=== PATIENT | female | born 1985 | race Two or more races ===

== ENCOUNTER 2017-10-17 19:41 | Emergency (ER) | payer OTHER ==
[2017-10-17 20:59] LABS: ABS Basophils 0 10^3/ul (0-0.2); ABS Eosinophils 0.1 10^3/ul (0-0.6); ABS Lymphocytes 2.6 10^3/ul (1.0-4.8); ABS Monocytes 0.5 10^3/ul (0-0.8); ABS Neutrophils 5.9 10^3/ul (1.5-7.7); ABS Nucleated RBC 0 10^3/ul; Hematocrit 39 % (35-47); Hemoglobin 13.5 g/dl (12.0-16.0); Lymphocyte % 28.6 % (25-47); Mean Corpuscular HGB Conc 34 g/dl (31-36); Mean Corpuscular Hemoglobin 29 pg (27-31); Mean Corpuscular Volume 83 fL (80-97); Mean Platelet Volume 8.8 um3 (7.4-10.4); Nucleated Red Blood Cells % 0.1; Platelet Count 225 10^3/ul (150-450); Red Blood Count 4.69 10^6/ul (4.00-5.40); Red Cell Distribution Width 14 % (10.5-15); White Blood Count 9.2 10^3/ul (3.5-10.8)
[2017-10-17 21:15] LABS: EGFR Non-African American 95.4 (>60)
[2017-10-17] MEDS ORDERED: Morphine VIAL* 10 MG/ML 1 ML VIAL IV ONE (22:45)
[2017-10-17] MEDS ORDERED: NS 0.9% 1000 ML* 1,000 ML IV ONE (22:45)
[2017-10-17] MEDS ORDERED: Ondansetron ODT TAB* 4 MG PO ONE (22:45)
[2017-10-17] MEDS ORDERED: Morphine VIAL* 4 MG/ML VIAL (1 ml vial) IV ONE ×2 (22:58→23:03)
--- NOTE | 2017-10-17 23:49 | ED ---
Abdominal Pain/Female - HPI Summary HPI Summary: Patient complains of right lower quadrant pain starting at 4 PM today. Abdominal pain described as constant, pulling, new onset, occurred while driving. Denies fever, N/V/D, urinary symptoms, change in BM, vaginal symptoms , cough, sore throat, CP, SOB. Medical history is none. Abdominal/pelvic surgical history is none. Nonsmoker, EtOH occasional, denies recreational drugs. - History of Current Complaint Chief Complaint: EDAbdPain Stated Complaint: RT SIDE PAIN Time Seen by Provider: 10/17/17 22:33 Hx Obtained From: Patient, Family/Social Media Developer Hx Last Menstrual Period: 07/04/15 Onset/Duration: Sudden Onset Timing: Constant Severity Initially: Moderate Severity Currently: Moderate Pain Intensity: 8 Pain Scale Used: 0-10 Numeric Location: Discrete At: RLQ Radiates: No Character: Tearing Alleviating Factor(s): Position Associated Signs and Symptoms: Positive: Negative Allergies/Adverse Reactions: Allergies Allergy/AdvReac Type Severity Reaction Status Date / Time No Known Allergies Allergy Verified 10/17/17 19:55 PMH/Surg Hx/FS Hx/Imm Hx Endocrine/Hematology History: Denies: Hx Diabetes Cardiovascular History: Denies: Hx Hypertension GI History: Comment Only: Other GI Disorders - HX OF BACTERIAL INFECTION IN STOMACH History: Denies: Hx Dialysis, Hx Renal Disease EENT History: Denies: Hx Deafness Neurological History: Denies: Hx CVA - Surgical History Surgery Procedure, Year, and Place: TUBAL LIGATION OCTOBER 2014. ABDOMINAL PLASTY OCTOBER 2014. BREAST IMPLANTS OCTOBER 2014 Infectious Disease History: No Infectious Disease History: Denies: History Other Infectious Disease, Traveled Outside the [place] in Last 30 Days - Family History Known Family History: Positive: Unknown Negative: Cardiac Disease, Hypertension, Diabetes - Social History Alcohol Use: Rare Substance Use Type: Reports: None Smoking Status (MU): Never Smoked Tobacco Have You Smoked in the Last Year: No Review of Systems Constitutional: Negative Eyes: Negative ENT: Negative Cardiovascular: Negative Respiratory: Negative Positive: Abdominal Pain Genitourinary: Negative Musculoskeletal: Negative Skin: Negative Neurological: Negative Psychological: Normal All Other Systems Reviewed And Are Negative: Yes Physical Exam - Summary Physical Exam Summary: Tenderness to palpation right lower quadrant. Exam of other quadrants unremarkable Triage Information Reviewed: Yes Vital Signs On Initial Exam: Initial Vitals Temp Pulse Resp BP Pulse Ox 97.2 F 79 18 128/70 100 10/17/17 19:53 10/17/17 19:53 10/17/17 19:53 10/17/17 19:53 10/17/17 19:53 Vital Signs Reviewed: Yes Appearance: Positive: Well-Appearing Skin: Positive: Warm Head/Face: Positive: Normal Head/Face Inspection Eyes: Positive: Normal Neck: Positive: Supple Respiratory/Lung Sounds: Positive: Clear to Auscultation Cardiovascular: Positive: Normal Musculoskeletal: Positive: Normal Neurological: Positive: Normal Psychiatric: Positive: Normal AVPU Assessment: Alert - Aida Coma Scale Best Eye Response: 4 - Spontaneous Best Motor Response: 6 - Obeys Commands Best Verbal Response: 5 - Oriented Coma Scale Total: 15 Diagnostics - Vital Signs Vital Signs Temp Pulse Resp BP Pulse Ox 10/17/17 23:04 20 10/17/17 23:00 67 100 10/17/17 22:47 60 100 10/17/17 22:46 62 126/83 100 10/17/17 21:54 98.4 F 63 18 134/77 100 10/17/17 19:53 97.2 F 79 18 128/70 100 - Laboratory Lab Results: Lab Results 10/17/17 10/17/17 10/17/17 Range/Units 20:44 20:44 20:44 WBC 9.2 (3.5-10.8) 10^3/ul RBC 4.69 (4.00-5.40) 10^6/ul Hgb 13.5 (12.0-16.0) g/dl Hct 39 (35-47) % MCV 83 (80-97) fL MCH 29 (27-31) pg MCHC 34 (31-36) g/dl RDW 14 (10.5-15) % Plt Count 225 (150-450) 10^3/ul MPV 8.8 (7.4-10.4) um3 Neut % (Auto) 64.5 (38-83) % Lymph % (Auto) 28.6 (25-47) % Gregg % (Auto) 5.4 (0-7) % Eos % (Auto) 1.0 (0-6) % Baso % (Auto) 0.5 (0-2) % Absolute Neuts (auto) 5.9 (1.5-7.7) 10^3/ul Absolute Lymphs (auto) 2.6 (1.0-4.8) 10^3/ul Absolute Monos (auto) 0.5 (0-0.8) 10^3/ul Absolute Eos (auto) 0.1 (0-0.6) 10^3/ul Absolute Basos (auto) 0 (0-0.2) 10^3/ul Absolute Nucleated RBC 0 10^3/ul Nucleated RBC % 0.1 Sodium 140 (135-145) mmol/L Potassium 3.5 (3.5-5.0) mmol/L Chloride 103 (101-111) mmol/L Carbon Dioxide 31 (22-32) mmol/L Anion Gap 6 (2-11) mmol/L BUN 10 (6-24) mg/dL Creatinine 0.71 (0.51-0.95) mg/dL Est GFR ( Amer) 115.4 (>60) Est GFR (Non-Af Amer) 95.4 (>60) BUN/Creatinine Ratio 14.1 (8-20) Glucose 88 (70-100) mg/dL Lactic Acid 0.8 (0.5-2.0) mmol/L Calcium 9.6 (8.6-10.3) mg/dL Total Bilirubin 0.40 (0.2-1.0) mg/dL AST 16 (13-39) U/L ALT 16 (7-52) U/L Alkaline Phosphatase 73 (34-104) U/L C-Reactive Protein 2.21 (<8.01) mg/L Total Protein 7.4 (6.4-8.9) g/dL Albumin 4.5 (3.2-5.2) g/dL Globulin 2.9 (2-4) g/dL Albumin/Globulin Ratio 1.6 (1-3) Lipase 36 (11.0-82.0) U/L Beta HCG, Quant < 0.60 mIU/mL Result Diagrams: 10/17/17 20:44 10/17/17 20:44 Lab Statement: Any lab studies that have been ordered have been reviewed, and results considered in the medical decision making process. - CT ab/pel with CT Interpretation: No Acute Changes CT Interpretation Completed By: Radiologist - Ultrasound No standard instances Ultrasound Interpretation: No Acute Changes - NEG for torsion Ultrasound Interpretation Completed By: Radiologist Abdominal Pain Fem Course/Dx - Course Course Of Treatment: Patient complains of right lower quadrant pain starting at 4 PM today. Abdominal pain described as constant, pulling, new onset, occurred while driving. Denies fever, N/V/D, urinary symptoms, change in BM, vaginal symptoms, cough, sore throat, CP, SOB. Medical history is none. Abdominal/ pelvic surgical history is none. Nonsmoker, EtOH occasional, denies recreational drugs. Tenderness to palpation right lower quadrant. Exam of other quadrants unremarkable. Vital signs within normal limits and stable. Labs and imaging unremarkable. Ultrasound negative for torsion. CT abdomen/ pelvis negative for acute process. Home with tramadol. Follow-up with primary care - Diagnoses Provider Diagnoses: Right lower quadrant abdominal pain Discharge - Sign-Out/Discharge Documenting (check all that apply): Discharge/Admit/Transfer - Discharge Plan Condition: Stable Disposition: HOME Prescriptions: Tramadol HCl 50 mg PO TID 4 Days #8 tablet MDD 3 Patient Education Materials: Acute Abdominal Pain (ED) Forms: *Work Release Referrals: Cordell Núñez MD [Primary Care Provider] - Additional Instructions: Follow-up with primary care. Return to the ED for any new or worsening symptoms - Billing Disposition and Condition Condition: STABLE Disposition: Home
[2017-10-18] LABS: Urine Appearance Cloudy; Urine Blood Negative (Negative); Urine Color Yellow; Urine Ketones Negative (Negative); Urine Protein Negative (Negative); Urine Specific Gravity 1.011 (1.010-1.030); Urine Urobilinogen Negative (Negative)
[2017-10-18] MEDS ORDERED: Iohexol 300* (CONTRAST) 10 ML SDV IV ONE (00:59)
[2017-10-18 02:52] VITALS: BP 114/79
--- NOTE | 2017-10-18 07:39 | RAD ---
Indication: Evaluate for ovarian torsion. Real-time sonography of the pelvis was performed. Transabdominally the uterus measures 11.2 x 4.9 x 7.2 cm. Endometrial echo measures 10 mm. Right ovary measures 2.9 x 1.6 x 1.5 cm. Left ovary measures 2.5 x 2.6 x 3.4 cm. Doppler interrogation demonstrates flow in both ovaries. IMPRESSION: Unremarkable pelvic ultrasound.
--- NOTE | 2017-10-18 08:18 | RAD ---
CLINICAL HISTORY: Right lower quadrant pain COMPARISON: Most recent comparison CT of the abdomen and pelvis is dated December 02, 2015 TECHNIQUE: Contrast enhanced CT examination of the abdomen and pelvis from the lung bases through the initial tuberosities. The patient received 109 mL Omnipaque 300 intravenously prior to imaging.The patient received oral contrast as well prior to imaging. FINDINGS: VISUALIZED LUNG BASES: The visualized lung bases are grossly clear. There is no pleural effusion. ABDOMEN AND PELVIS: The liver, spleen, pancreas and adrenal glands are grossly normal in appearance. The gallbladder is normal. The kidneys are normal in appearance without focal mass, calcification or signs of hydronephrosis. The oral contrast has progressed as far as the hepatic flexure. The small and large bowel are not distended. The patient's normal appendix is identified in the right lower quadrant with gas partially filling the lumen measuring 5 mm in diameter. There is no gross retroperitoneal or mesenteric lymphadenopathy. The pelvic viscera is normal in appearance. The abdominal aorta and iliac arteries are normal in course and diameter. There are no sinister bone lesions. IMPRESSION: Normal CT examination.
--- NOTE | 2017-10-20 06:35 | PN ---
Progress Note - Progress Note Date of Service: 10/17/17 Note: Patient urine culture grew e. coli 25-50,000 This is moderate and will not treat at this time for low colony count
== END 2017-10-18 02:52 | disposition home or self-care (01) ==
LOC: ED 19:41
DX: R10.31 Right lower quadrant pain (principal)
CPT/HCPCS: 36415; 74177; 76856; 80053; 81003; 81015; 83605; 83690; 84702; 85025; 86140; 87077; 87086; 87186; 96374; 99283; A9270-GY; J2270; Q9967

== ENCOUNTER 2018-06-11 16:51 | Emergency (ER) | payer OTHER ==
[2018-06-11 17:41] LABS: Influenza A Molecular POSITIVE (Negative)
--- NOTE | 2018-06-11 18:08 | ED ---
Influenza-Like Illness - HPI Summary HPI Summary: Pt is a 33 y/o female who presents to the ED c/o fever. She has had symptoms for 3 days, which include fevers, body aches, sore throat, cough, rhinorrhea, mild SOB, and N/V. Pt denies any diarrhea. She rates the pain as a 10/10 in severity. She did not get this seasons flu vaccine. Pt has not taken any OTC medications. - History of Current Complaint Chief Complaint: EDFluSymptoms Hx Obtained From: Patient Onset/Duration: Gradual Onset, Lasting Days - 3, Still Present Severity: Severe - 10/10 Associated Signs & Symptoms: Fever, Cough, Sore Throat, Nasal Congestion, Vomiting - Allergy/Home Medications Allergies/Adverse Reactions: Allergies Allergy/AdvReac Type Severity Reaction Status Date / Time No Known Allergies Allergy Verified 06/11/18 17:16 PMH/Surg Hx/FS Hx/Imm Hx Endocrine/Hematology History: Denies: Hx Diabetes Cardiovascular History: Denies: Hx Hypertension GI History: Comment Only: Other GI Disorders - HX OF BACTERIAL INFECTION IN STOMACH History: Denies: Hx Dialysis, Hx Renal Disease Sensory History: Denies: Hx Deafness Neurological History: Denies: Hx CVA - Surgical History Surgery Procedure, Year, and Place: TUBAL LIGATION OCTOBER 2014. ABDOMINAL PLASTY OCTOBER 2014. BREAST IMPLANTS OCTOBER 2014 Infectious Disease History: No Infectious Disease History: Denies: History Other Infectious Disease, Traveled Outside the [place] in Last 30 Days - Family History Known Family History: Negative: Cardiac Disease, Hypertension, Diabetes - Social History Alcohol Use: Rare Hx Substance Use: No Substance Use Type: Reports: None Hx Tobacco Use: No Smoking Status (MU): Never Smoked Tobacco Have You Smoked in the Last Year: No Review of Systems Positive: Fever, Other - Body aches Positive: Sore Throat, Nasal Discharge Positive: Shortness Of Breath, Cough Positive: Vomiting, Nausea. Negative: Diarrhea All Other Systems Reviewed And Are Negative: Yes Physical Exam - Summary Physical Exam Summary: Appearance: Well appearing, no pain distress Skin: hot, dry, reflects adequate perfusion Head/face: normal Eyes: EOMI, BRYANNA ENT: mucous membranes moist, clear nasal mucus, pharynx clear Neck: supple, non-tender Respiratory: CTA, breath sounds present Cardiovascular: tachycardic but regular rhythm, pulses symmetrical Abdomen: non-tender, soft Bowel Sounds: present Musculoskeletal: normal, strength/ROM intact Neuro: normal, sensory motor intact, A&Ox3 Triage Information Reviewed: Yes Vital Signs On Initial Exam: Initial Vitals Temp Pulse Resp BP Pulse Ox 101.2 F 106 18 130/77 100 06/11/18 17:12 06/11/18 17:12 06/11/18 17:12 06/11/18 17:12 06/11/18 17:12 Vital Signs Reviewed: Yes Diagnostics - Vital Signs Vital Signs Temp Pulse Resp BP Pulse Ox 06/11/18 17:12 101.2 F 106 18 130/77 100 - Laboratory Lab Results: Lab Results 06/11/18 06/11/18 Range/Units 17:34 17:37 Influenza A (Rapid) Positive A (Negative) Group A Strep Rapid Negative (Negative) Lab Statement: Any lab studies that have been ordered have been reviewed, and results considered in the medical decision making process. Flu Symptom Course/Dx - Course Course Of Treatment: Nurse's notes reviewed. Patient with fever, body aches and flulike symptoms. She has tested positive for influenza A. She has had symptoms greater than 48 hours and is not a candidate for Tamiflu. Treat symptomatically. Tylenol, ibuprofen and dexamethasone here in the ER. Follow- up primary care physician. - Diagnoses Differential Diagnosis/HQI/PQRI: Positive: Bronchitis, Influenza, Upper Respiratory Infection Provider Diagnoses: Influenza A Discharge - Sign-Out/Discharge Documenting (check all that apply): Patient Departure - Discharge Patient Received Moderate/Deep Sedation with Procedure: No - Discharge Plan Condition: Improved Disposition: HOME Prescriptions: Lidocaine 2% VISCOUS* [Xylocaine 2% Viscous*] 15 ml SWISH SPIT Q4H PRN #1 btl PRN Reason: Sore Throat Naproxen [Naproxen 500 mg tab] 500 mg PO BID PRN #10 tablet.dr PRN Reason: fever/body aches Patient Education Materials: Influenza (ED) Print Language: AMHARIC Referrals: Cordell Núñez MD [Primary Care Provider] - Additional Instructions: beber mucho lquido. La vitamina C puede ayudar. Llame a bautista mdico a primera hora de la maana para programar un seguimiento inmediato. Regrese con dificultad para respirar, dolor en el pecho, incapacidad para retener lquidos, peor u otras preocupaciones. La influenza es contagiosa: lvese las diann y no comparta bebidas con otros. - Billing Disposition and Condition Condition: IMPROVED Disposition: Home - Attestation Statements Document Initiated by Scribe: Yes Documenting Scribe: Angelina Goodman Provider For Whom Scribe is Documenting (Include Credential): Jaret Oliver MD Scribe Attestation: Angelina Nichols, scribed for Jarte Oliver MD on 06/11/18 at 1833. Scribe Documentation Reviewed: Yes Provider Attestation: The documentation as recorded by the Angelina raphael accurately reflects the service I personally performed and the decisions made by Jaret white MD Status of Scribe Document: Viewed
[2018-06-11] MEDS ORDERED: Ibuprofen PED LIQ 100 MG/5 ML UDC PO ONE (18:10)
[2018-06-11] MEDS ORDERED: Acetaminophen ADULT LIQ* 650 MG/20.3 ML UDC PO ONE (18:11)
[2018-06-11] MEDS ORDERED: Dexamethasone Oral Solution* 1 MG/ML 10 ML UDC (10 MG) PO ONE (18:11)
[2018-06-11 18:34] VITALS: BP 129/79
== END 2018-06-11 18:36 | disposition home or self-care (01) ==
LOC: ED 16:51
DX: J10.1 Influenza due to other identified influenza virus with other respiratory manifestations (principal)
CPT/HCPCS: 87651; 99282; A9270-GY

== ENCOUNTER 2018-08-15 18:20 | Emergency (ER) | payer OTHER ==
[2018-08-15 22:39] LABS: ALT 12 U/L (7-52); AST 14 U/L (13-39); Albumin 4.2 g/dL (3.2-5.2); Albumin/Globulin Ratio 1.8 (1-3); Alkaline Phosphatase 78 U/L (34-104); Anion Gap 6 mmol/L (2-11); BUN/Creatinine Ratio 18.2 (8-20); Blood Urea Nitrogen 12 mg/dL (6-24); C Reactive Protein < 1.00 mg/L (<8.01); CO2 Carbon Dioxide 30 mmol/L (22-32); Chloride 105 mmol/L (101-111); EGFR African American 124.8 (>60); EGFR Non-African American 103.1 (>60); Globulin 2.3 g/dL (2-4); Glucose 90 mg/dL (70-100); Potassium 3.5 mmol/L (3.5-5.0); Sodium 141 mmol/L (135-145); Total Protein 6.5 g/dL (6.4-8.9)
[2018-08-15 22:41] LABS: ABS Basophils 0 10^3/ul (0-0.2); ABS Eosinophils 0.1 10^3/ul (0-0.6); ABS Lymphocytes 2.4 10^3/ul (1.0-4.8); ABS Monocytes 0.5 10^3/ul (0-0.8); ABS Neutrophils 4.5 10^3/ul (1.5-7.7); ABS Nucleated RBC 0 10^3/ul; Eosinophil % 1.6 %; Hematocrit 38 % (33-41); Hemoglobin 12.7 g/dL (12.0-16.0); Lymphocyte % 32.1 %; Mean Corpuscular HGB Conc 34 g/dL (31-36); Mean Corpuscular Hemoglobin 29 pg (27-31); Mean Corpuscular Volume 84 fL (80-97); Mean Platelet Volume 9.5 fL (7.4-10.4); Nucleated Red Blood Cells % 0.1; Platelet Count 195 10^3/uL (150-450); Red Blood Count 4.46 10^6 /uL (3.70-4.87); Red Cell Distribution Width 15 % (10.5-15); White Blood Count 7.6 10^3/uL (3.5-10.8)
[2018-08-15 22:42] LABS: Urine Appearance Cloudy; Urine Bilirubin Negative (Negative); Urine Blood Negative (Negative); Urine Color Yellow; Urine Glucose Negative (Negative); Urine Ketones Negative (Negative); Urine Nitrite Negative (Negative); Urine Protein Negative (Negative); Urine Specific Gravity 1.015 (1.010-1.030); Urine Urobilinogen Negative (Negative)
[2018-08-15 22:46] LABS: HCG Pregnancy < 0.60 mIU/mL
--- NOTE | 2018-08-15 23:20 | ED ---
Abdominal Pain/Female - HPI Summary HPI Summary: Patient complains of umbilical pain 3 days. States history of same intermittently times years. Last episode was 3 months ago. Patient is concerned she may have a hernia. Pain worse with movement, better with nothing. Denies trauma, fever, cough, sore throat, CP, SOB, N/V/D, age in urine , change in BM, vaginal symptoms. Medical history is none. Abdominal surgical history is none. - History of Current Complaint Chief Complaint: EDAbdPain Stated Complaint: ABD PAIN PER PT Time Seen by Provider: 08/15/18 21:51 Hx Obtained From: Patient Hx Last Menstrual Period: 07/04/15 ?: No Onset/Duration: Gradual Onset, Lasting Days Timing: Intermittent Episode Lasting Severity Initially: Severe Severity Currently: Severe Pain Intensity: 8 Pain Scale Used: 0-10 Numeric Location: Umbilical Radiates: No Character: Dull Aggravating Factor(s): Movement Alleviating Factor(s): Position Associated Signs and Symptoms: Positive: Negative Allergies/Adverse Reactions: Allergies Allergy/AdvReac Type Severity Reaction Status Date / Time No Known Allergies Allergy Verified 06/11/18 17:16 Home Medications: Home Medications NK [No Home Medications Reported] 08/15/18 [History Confirmed 08/15/18] PMH/Surg Hx/FS Hx/Imm Hx Endocrine/Hematology History: Denies: Hx Diabetes Cardiovascular History: Denies: Hx Hypertension GI History: Comment Only: Other GI Disorders - HX OF BACTERIAL INFECTION IN STOMACH History: Denies: Hx Dialysis, Hx Renal Disease Sensory History: Denies: Hx Deafness Opthamlomology History: Denies: Hx Eye Prosthesis EENT History: Denies: Hx Deafness Neurological History: Denies: Hx CVA Psychiatric History: Denies: Hx Autism - Surgical History Surgery Procedure, Year, and Place: TUBAL LIGATION OCTOBER 2014. ABDOMINAL PLASTY OCTOBER 2014. BREAST IMPLANTS OCTOBER 2014 Infectious Disease History: No Infectious Disease History: Denies: History Other Infectious Disease, Traveled Outside the [place] in Last 30 Days - Family History Known Family History: Negative: Cardiac Disease, Hypertension, Diabetes - Social History Alcohol Use: Rare Hx Substance Use: No Substance Use Type: Reports: None Hx Tobacco Use: No Smoking Status (MU): Never Smoked Tobacco Have You Smoked in the Last Year: No Review of Systems Constitutional: Negative Eyes: Negative ENT: Negative Cardiovascular: Negative Respiratory: Negative Positive: Abdominal Pain Genitourinary: Negative Musculoskeletal: Negative Skin: Negative Neurological: Negative Psychological: Normal All Other Systems Reviewed And Are Negative: Yes Physical Exam - Summary Physical Exam Summary: Mild tenderness around the umbilicus. Abdominal exam normal in all other quadrants. No hernia, mass, erythema, skin change noted to abdomen. Lung sounds clear to auscultation bilaterally. RRR. Triage Information Reviewed: Yes Vital Signs On Initial Exam: Initial Vitals Temp Pulse Resp BP Pulse Ox 97 F 72 18 138/61 100 08/15/18 18:35 08/15/18 18:35 08/15/18 18:35 08/15/18 18:35 08/15/18 18:35 Vital Signs Reviewed: Yes Appearance: Positive: Well-Appearing Skin: Positive: Warm Head/Face: Positive: Normal Head/Face Inspection Eyes: Positive: Normal Neck: Positive: Supple Respiratory/Lung Sounds: Positive: Clear to Auscultation Cardiovascular: Positive: Normal Abdomen Description: Positive: Other: Musculoskeletal: Positive: Normal Neurological: Positive: Normal Psychiatric: Positive: Normal AVPU Assessment: Alert - Aida Coma Scale Best Eye Response: 4 - Spontaneous Best Motor Response: 6 - Obeys Commands Best Verbal Response: 5 - Oriented Coma Scale Total: 15 Diagnostics - Vital Signs Vital Signs Temp Pulse Resp BP Pulse Ox 08/15/18 20:46 97.8 F 68 16 120/66 100 08/15/18 18:35 97 F 72 18 138/61 100 - Laboratory Lab Results: Lab Results 08/15/18 08/15/18 08/15/18 Range/Units 22:12 22:12 22:30 WBC 7.6 (3.5-10.8) 10^3/uL RBC 4.46 (3.70-4.87) 10^6 /uL Hgb 12.7 (12.0-16.0) g/dL Hct 38 (33-41) % MCV 84 (80-97) fL MCH 29 (27-31) pg MCHC 34 (31-36) g/dL RDW 15 (10.5-15) % Plt Count 195 (150-450) 10^3/uL MPV 9.5 (7.4-10.4) fL Neut % (Auto) 59.2 % Lymph % (Auto) 32.1 % [place] % (Auto) 6.7 % Eos % (Auto) 1.6 % Baso % (Auto) 0.4 % Absolute Neuts (auto) 4.5 (1.5-7.7) 10^3/ul Absolute Lymphs (auto) 2.4 (1.0-4.8) 10^3/ul Absolute Monos (auto) 0.5 (0-0.8) 10^3/ul Absolute Eos (auto) 0.1 (0-0.6) 10^3/ul Absolute Basos (auto) 0 (0-0.2) 10^3/ul Absolute Nucleated RBC 0 10^3/ul Nucleated RBC % 0.1 Sodium 141 (135-145) mmol/L Potassium 3.5 (3.5-5.0) mmol/L Chloride 105 (101-111) mmol/L Carbon Dioxide 30 (22-32) mmol/L Anion Gap 6 (2-11) mmol/L BUN 12 (6-24) mg/dL Creatinine 0.66 (0.51-0.95) mg/dL Est GFR ( Amer) 124.8 (>60) Est GFR (Non-Af Amer) 103.1 (>60) BUN/Creatinine Ratio 18.2 (8-20) Glucose 90 (70-100) mg/dL Calcium 9.0 (8.6-10.3) mg/dL Total Bilirubin 0.30 (0.2-1.0) mg/dL AST 14 (13-39) U/L ALT 12 (7-52) U/L Alkaline Phosphatase 78 (34-104) U/L C-Reactive Protein < 1.00 (<8.01) mg/L Total Protein 6.5 (6.4-8.9) g/dL Albumin 4.2 (3.2-5.2) g/dL Globulin 2.3 (2-4) g/dL Albumin/Globulin Ratio 1.8 (1-3) Lipase 34 (11.0-82.0) U/L Beta HCG, Quant < 0.60 mIU/mL Urine Color Yellow Urine Appearance Cloudy Urine pH 7.0 (5-9) Ur Specific [place] 1.015 (1.010-1.030) Urine Protein Negative (Negative) Urine Ketones Negative (Negative) Urine Blood Negative (Negative) Urine Nitrate Negative (Negative) Urine Bilirubin Negative (Negative) Urine Urobilinogen Negative (Negative) Ur Leukocyte Esterase Negative (Negative) Urine Glucose Negative (Negative) Result Diagrams: 08/15/18 22:12 08/15/18 22:12 Lab Statement: Any lab studies that have been ordered have been reviewed, and results considered in the medical decision making process. Abdominal Pain Fem Course/Dx - Course Course Of Treatment: Patient complains of umbilical pain 3 days. States history of same intermittently times years. Last episode was 3 months ago. Patient is concerned she may have a hernia. Pain worse with movement, better with nothing. Denies trauma, fever, cough, sore throat, CP, SOB, N/V/D, age in urine, change in BM, vaginal symptoms. Medical history is none. Abdominal surgical history is none. Physical exam:Mild tenderness around the umbilicus. Abdominal exam normal in all other quadrants. No hernia, mass, erythema, skin change noted to abdomen. Lung sounds clear to auscultation bilaterally. RRR. Vital signs within normal limits. Labs unremarkable. Patient has had multiple CTs and ultrasounds for various forms of abdominal pain. CT abdomen and pelvis for "stomach bloating " 09/2017 negative for hernia. Patient states symptoms have been going on for couple years. Patient advised of radiation risks and benefits of CT abdomen and pelvis at this time, opted to defer and follow-up with primary care. Patient stated to his provider she had appointment to set up Primary care on Monday, however stated to nurse that she did not have primary care. Patient was provided with care connections info. Patient will follow up. Patient understands and approves of plan. Multiple CTs and ultrasounds. - Diagnoses Provider Diagnoses: Abdominal pain Discharge - Sign-Out/Discharge Documenting (check all that apply): Patient Departure Patient Received Moderate/Deep Sedation with Procedure: No - Discharge Plan Condition: Stable Disposition: HOME Patient Education Materials: Umbilical Hernia (ED), Chronic Abdominal Pain (ED) Print Language: MOHAWK Referrals: No Primary Care Phys,NOPCP [Primary Care Provider] - Additional Instructions: Follow-up with primary care and GI Dr Gonzalez for further evaluation of chronic abdominal pain. Return to the ED for any new or worsening symptoms. - Billing Disposition and Condition Condition: STABLE Disposition: Home
[2018-08-15 23:41] VITALS: BP 122/68
== END 2018-08-15 23:25 | disposition home or self-care (01) ==
LOC: ED 18:20
DX: R10.33 Periumbilical pain (principal)
CPT/HCPCS: 36415; 80053; 81003; 83690; 84702; 85025; 86140; 99282